=== PATIENT | female | born 1970 | race Caucasian/White ===

== ENCOUNTER 2016-12-15 10:13 | Day surgery (SDC) | payer OTHER ==
[~2016-12-15] VITALS: Ht 167.6 cm; Wt 123.4 kg
[2016-12-15 11:04] LABS: BASOPHILS % 0.8 % (0.0-2.0); EOSINOPHILS % 3.6 % (0.0-5.0); HEMATOCRIT. 38.6 % (36.0-48.0); HEMOGLOBIN. 13.1 g/dL (12.0-16.0); LYMPHOCYTES % 42.6 % (20.0-50.0); MEAN CORPUSCULAR VOLUME 85.8 fL (81.0-99.0); MEAN PLATELET VOLUME 7.1 fl (7.4-10.4); MONOCYTES % 7.1 % (2.0-8.0); NEUTROPHILS % 45.9 % (40.0-76.0); PLATELET 300 x1000/uL (130-400); RED CELL DISTRIBUTION WIDTH 13.9 % (11.6-14.6)
[2016-12-15 11:09] LABS: UCG SCREEN NEGATIVE
[2016-12-15] MEDS ORDERED: SODIUM CHLORIDE 0.9% 1,000 ML IV SCH (11:10)
[2016-12-15 11:17] LABS: CARBON DIOXIDE 25 mEq/L (21-32); CHLORIDE 107 mEq/L (98-107)
[2016-12-15] MEDS ORDERED: VENL150C2 PO (11:17)
[2016-12-15] MEDS ORDERED: [UNRECOGNIZED DRUG - CODE] PO (11:17)
[2016-12-15] MEDS ORDERED: LISI10TA5 PO (11:17)
[2016-12-15] MEDS ORDERED: PROC10TA PO (11:17)
[2016-12-15] MEDS ORDERED: PROPOFOL 200MG/20ML VIAL IV ONE (12:00)
== END 2016-12-15 13:30 | disposition home or self-care (01) ==
LOC: OR 10:13
PROVIDERS: ATTEND Internal Medicine Gastroenterology
DX: K22.10 Ulcer of esophagus without bleeding (principal); K44.9 Diaphragmatic hernia without obstruction or gangrene; K29.60 Other gastritis without bleeding; K21.9 Gastro-esophageal reflux disease without esophagitis; E66.01 Morbid (severe) obesity due to excess calories; I10 Essential (primary) hypertension; G43.909 Migraine, unspecified, not intractable, without status migrainosus; M19.90 Unspecified osteoarthritis, unspecified site; G47.33 Obstructive sleep apnea (adult) (pediatric); F32.9 Major depressive disorder, single episode, unspecified; Z98.84 Bariatric surgery status; Z88.8 Allergy status to other drugs, medicaments and biological substances; Z79.899 Other long term (current) drug therapy
CPT/HCPCS: 36415; 43239; 80048; 81025; 85025; 88305; 88312; 88313; J7030; J2704